=== PATIENT | male | born 2005 | race Caucasian/White ===

== ENCOUNTER 2024-02-19 22:26 | Emergency (ER) | payer OTHER ==
[~2024-02-19] VITALS: Ht 167.6 cm; Wt 82.0 kg
[2024-02-19 22:49] VITALS: O2SAT 96
[2024-02-20] MEDS: KETOROLAC 15MG/ML VIAL IM ONE (01:45)
[2024-02-20] MEDS: METOCLOPRAMIDE HCL 10MG TABLET PO ONE (01:45)
[2024-02-20] MEDS ORDERED: NAPR-1176 MT (01:47)
[2024-02-20 01:58] VITALS: BP 130/73; PULSE 76; RESP 17; TEMP 36.78072; O2SAT 99
== END 2024-02-20 01:59 | disposition home or self-care (01) ==
LOC: ER 22:26
DX: S06.9XAA Unspecified intracranial injury with loss of consciousness status unknown, initial encounter (principal); Y04.0XXA Assault by unarmed brawl or fight, initial encounter; Y93.89 Activity, other specified; Y92.89 Other specified places as the place of occurrence of the external cause; Y99.8 Other external cause status
CPT/HCPCS: 99283; 96372; J8597; J1885